=== PATIENT | male | born 1970 | race Caucasian/White ===

== ENCOUNTER 2016-10-07 18:38 | Day surgery (SDC) | payer OTHER ==
[~2016-10-07] VITALS: Ht 182.9 cm; Wt 90.9 kg
[2016-10-07 22:24] VITALS: BP 134/100; PULSE 69; TEMP 97.5
[2016-10-07 22:30] VITALS: BP 144/91; PULSE 65
[2016-10-07 22:45] VITALS: BP 135/86; PULSE 72
[2016-10-07 23:00] VITALS: BP 136/100; PULSE 72
[2016-10-07 23:15] VITALS: BP 145/97; PULSE 59
== END 2016-10-07 23:20 | disposition home or self-care (01) ==
LOC: COL.ER 18:38 → SDCO 19:26 → SURG 19:26 → COL.ER 19:27 → SDCO 23:20
DX: S62.624B Displaced fracture of middle phalanx of right ring finger, initial encounter for open fracture (principal); W45.8XXA Other foreign body or object entering through skin, initial encounter; W27.8XXA Contact with other nonpowered hand tool, initial encounter; W22.8XXA Striking against or struck by other objects, initial encounter
CPT/HCPCS: OP; J1100; J1885; J2250; J2704; J2765; J3010; J7030

== ENCOUNTER 2017-02-07 08:00 | Outpatient (RCR) | payer OTHER | END 2017-02-13 | disposition home or self-care (01) | LOC: WSOT | DX: S62.604D Fracture of unspecified phalanx of right ring finger, subsequent encounter for fracture with routine healing (principal); X58.XXXD Exposure to other specified factors, subsequent encounter ==